=== PATIENT | male | born 1960 | race Caucasian/White ===

== ENCOUNTER 2024-10-09 09:44 | Observation (INO) | payer OTHER ==
[2024-10-09 10:33] LABS: Absolute Basophils 0.1 K/uL (0-0.5); Absolute Eosinophils 0.1 K/uL (0-0.5); Absolute Lymphocytes (CBC) 1.8 K/uL (0.7-4.9); Absolute Monocytes 0.7 K/uL (0.1-1.3); Absolute Neutrophil 4.7 K/uL (1.8-8.0); Basophils % 1.1 % (0-1.3); Hemoglobin 14.6 g/dL (13.6-17.9); Lymphocytes % 23.9 % (15.3-44.8); MCH 30.4 pg (27.0-35.0); MCHC 33.2 g/dL (32.0-36.0); MCV 91.5 fL (80-100); MPV 7.5 fL (7.6-11.3); Monocytes % 9.2 % (3.3-12.3); Neutrophils % 63.8 % (41.7-73.7); Nucleated Red Blood Cells % 0.1 % (0-0); Platelets 292 thou/uL (152-406); RBC Red Blood Cell Count 4.81 M/uL (4.33-5.43); Red Cell Distribution Width 15.1 % (12.1-15.2)
[2024-10-09 10:35] LABS: PT Prothrombin Time 11.2 SECONDS (10.0-13.0); Protime INR 0.98
[2024-10-09 10:46] LABS: Anion Gap 8.4 mEq/L (5.0-15.0); Potassium 4.4 mEq/L (3.5-5.1); Troponin High Sensitivity 10.6 pg/mL (<58.9)
--- NOTE | 2024-10-09 11:06 | RAD REPORT ---
EXAM: Chest Single View HISTORY: 63 years Male CHEST PAIN COMPARISON: None. FINDINGS: LUNGS/PLEURA: The lungs are clear. No pleural effusions or pneumothorax. No pulmonary edema. CARDIAC/MEDIASTINUM: Magnified by portable technique, but probably within normal limits. UPPER ABDOMEN: No significant abnormality. BONES: No acute abnormality. LINES/TUBES/OTHER: N/A IMPRESSION: No evidence of acute cardiopulmonary disease.
--- NOTE | 2024-10-09 11:09 | EDPHYS ---
Physician Documentation [facility] Name: Emanuel Tapia Age: 63 yrs Sex: Male : 1960 Arrival Date: 10/09/2024 Time: 09:44 Bed 7 Private MD: ED Physician Ashok Dominguez HPI: 10/09 11:04 This 63 yrs old Male presents to ER via Ambulatory with complaints of chest pain. rn 11:04 The patient or guardian reports chest pain that is located primarily in the substernal rn area. Onset: at an unknown time. Associated signs and symptoms: Pertinent negatives: diaphoresis, shortness of breath, syncope, vomiting. The chest pain is described as a heaviness. Modifying factors: The symptoms are alleviated by nothing. the symptoms are aggravated by nothing. Severity of pain: At its worst the pain was moderate in the emergency department the pain has improved. The patient has not experienced similar symptoms in the past. Patient reports chest pain, unclear exactly when it started but presented to [place] overnight to see Dr. Xavier in clinic this morning, Dr. Xavier sent patient here for admission and cath due to concerning story. Patient reports last heart cath was approximately 5 years ago. Patient does report recent acid reflux and heartburn problems. No cough or shortness of breath.. Historical: - Allergies: 09:58 No Known Allergies; ll1 - PMHx: 09:58 Hypertensive disorder; ll1 10:05 Hypercholesterolemia; ll1 - PSHx: 10:05 shoulder x 2, hip replacement; ll1 - Immunization history:: Adult Immunizations up to date. - Infectious Disease History:: Denies. - Social history:: Smoking status: Patient denies any tobacco usage or history of. - Family history:: not pertinent. - Hospitalizations: : No recent hospitalization is reported. ROS: 11:04 Constitutional: Negative for fever, chills, and weight loss, Cardiovascular: Negative rn for palpitations, and edema, Respiratory: Negative for shortness of breath, cough, wheezing, and pleuritic chest pain, Abdomen/GI: Negative for abdominal pain, nausea, vomiting, diarrhea, and constipation, MS/Extremity: Negative for injury and deformity, Skin: Negative for injury, rash, and discoloration, Neuro: Negative for headache, weakness, numbness, tingling, and seizure, Exam: 11:04 Constitutional: This is a well developed, well nourished patient who is awake, alert, rn and in no acute distress. Cardiovascular: Regular rate and rhythm. No pulse deficits. Respiratory: Speaking full sentences, unlabored. No increased work of breathing, no retractions or nasal flaring. Abdomen/GI: Soft, non-tender MS/ Extremity: Pulses equal, no cyanosis. Neurovascular intact. Full, normal range of motion. Equal circumference. Neuro: Awake and alert, GCS 15 Vital Signs: 09:59 Resp 18; Temp 98; Weight 117.93 kg; Height 5 ft. 11 in. ; Pain 6/10; ll1 10:37 BP 149 / 99; Pulse 68; Resp 21; Pulse Ox 98% on R/A; hb 11:45 BP 156 / 86; Pulse 66; Resp 16; Pulse Ox 99% on R/A; hb 13:00 BP 153 / 93; Pulse 63; Resp 21; Pulse Ox 97% on R/A; hb 09:59 Body Mass Index 36.26 (117.93 kg, 180.34 cm) ll1 09:59 Pain Scale: Adult ll1 MDM: 09:49 Medical Screening Exam initiated rn 11:04 Differential diagnosis: acute myocardial infarction, acute pericarditis, coronary rn artery disease costochondritis, pleurisy, pneumothorax, stable angina, unstable angina. HEART Score: History: Moderately Suspicious (1), ECG: Normal (0), Age: > 45 and < 65 years (1), Risk Factors: 1 or 2 risk factors (1), Troponin: < or = 1 x Normal Limit (0), Total Score = 3. Data reviewed: vital signs, nurses notes, lab test result(s), EKG, radiologic studies, plain films, and as a result, I will admit patient. Consideration of Admission/Observation Patient was admitted/placed on observation. Escalation of care including admission/observation considered. Counseling: I had a detailed discussion with the patient and/or guardian regarding the historical points, exam findings, and any diagnostic results supporting the discharge/admit diagnosis, lab results, radiology results, the need for further work-up and treatment in the hospital. ED course: Dr. Xavier called in, once patient n.p.o. and will likely take to cath later. Did not specify any other medications to be given at this time.. 10/09 10:06 Order name: Basic Metabolic Panel; Complete Time: 10:49 rn 10/09 10:06 Order name: CBC with Diff; Complete Time: 10:49 rn 10/09 10:06 Order name: NT PRO-BNP; Complete Time: 10:49 rn 10/09 10:06 Order name: PT-INR; Complete Time: 10:49 rn 10/09 10:06 Order name: Troponin HS; Complete Time: 10:49 rn 10/09 10:06 Order name: XRAY Chest (1 view); Complete Time: 11:08 rn 10/09 10:06 Order name: Cardiac monitoring; Complete Time: 10:18 rn 10/09 10:06 Order name: EKG - Nurse/Tech; Complete Time: 10:18 rn 10/09 10:06 Order name: IV Saline Lock; Complete Time: 10: rn 10/09 10:06 Order name: Labs collected and sent; Complete Time: 10: rn 10/09 10:06 Order name: O2 Per Protocol; Complete Time: 10: rn 10/09 10:06 Order name: O2 Sat Monitoring; Complete Time: 10:18 rn Administered Medications: No medications were administered Disposition Summary: 10/09/24 11:08 Hospitalization Ordered Notes: Hospitalization Status: Observation rn Provider: Magdiel Dominguez rn Condition: Stable rn Problem: an ongoing problem rn Symptoms: have improved rn Bed/Room Type: Standard rn Location: Telemetry/MedSurg (observation)(10/09/24 15:46) bd Room Assignment: [facility](10/09/24 15:46) bd Diagnosis - Chest pain, unspecified rn Forms: - Medication Reconciliation Form rn - SBAR form rn - Leadership Thank You Letter rn Signatures: Dispatcher [employer] EDMS Rere Nascimento bd Ashok Dominguez MD MD rn Baxter, Heather, RN RN hb Lewis, Lynsay RN RN ll1 Corrections: (The following items were deleted from the chart) 10:06 10:06 BASIC METABOLIC PANEL+C.LAB.BRZ ordered. EDMS EDMS 10:06 10:06 CBC+H.LAB.BRZ ordered. EDMS EDMS 10:06 10:06 PROBNP+C.LAB.BRZ ordered. EDMS EDMS 10:06 10:06 PROTIME (+INR)+COAG.LAB.BRZ ordered. EDMS EDMS 10:06 10:06 Troponin High Sensitivity+C.LAB.BRZ ordered. EDMS EDMS 10:06 10:06 Chest Single View+RAD.RAD.BRZ ordered. EDMS EDMS 10:06 09:58 PMHx: Coronary atherosclerosis; ll1 ll1 12:32 11:08 rn bd 12:48 12:32 405 bd bd 13:25 11:08 Telemetry/MedSurg (observation) rn hb 13:25 12:48 bd hb 15:46 13:25 [facility] ER HOLD hb bd 15:46 13:25 ERHOLD- hb bd
--- NOTE | 2024-10-09 11:09 | ER ---
Nurse's Notes [facility] Name: Emanuel Tapia Age: 63 yrs Sex: Male : 1960 Arrival Date: 10/09/2024 Time: 09:44 Bed 7 Private MD: Diagnosis: Chest pain, unspecified Presentation: 10/09 09:59 Chief complaint: Patient states: Sent in for further evaluation by Dr. Xavier. Chest ll1 pressure since 129. Coronavirus screen: Client denies travel out of the [place] in the last 14 days. At this time, the client does not indicate any symptoms associated with coronavirus-19. Ebola Screen: Patient denies travel to an Ebola-affected area in the 21 days before illness onset. Initial Sepsis Screen: Does the patient meet any 2 criteria? No. Patient's initial sepsis screen is negative. Does the patient have a suspected source of infection? No. Patient's initial sepsis screen is negative. Risk Assessment: Do you want to hurt yourself or someone else? Patient reports no desire to harm self or others. Onset of symptoms was October 09, 2024. 09:59 Method Of Arrival: Ambulatory ll1 09:59 Acuity: MAXIMINO 2 ll1 Triage Assessment: 10:00 General: Appears uncomfortable, Behavior is calm, cooperative, appropriate for age. ll1 Pain: Denies pain. Cardiovascular: Reports chest pain. Historical: - Allergies: 09:58 No Known Allergies; ll1 - PMHx: 09:58 Hypertensive disorder; ll1 10:05 Hypercholesterolemia; ll1 - PSHx: 10:05 shoulder x 2, hip replacement; ll1 - Immunization history:: Adult Immunizations up to date. - Infectious Disease History:: Denies. - Social history:: Smoking status: Patient denies any tobacco usage or history of. - Family history:: not pertinent. - Hospitalizations: : No recent hospitalization is reported. Screenin:19 [facility] ED Fall Risk Assessment (Adult) History of falling in the last 3 months, hb including since admission No falls in past 3 months (0 pts) Confusion or Disorientation No (0 pts) Intoxicated or Sedated No (0 pts) Impaired Gait No (0 pts) Mobility Assist Device Used No (0 pt) Altered Elimination No (0 pt) Score/Fall Risk Level 0 - 2 = Low Risk Oriented to surroundings, Maintained a safe environment, Educated pt \T\ family on fall prevention, incl call for assistance when getting out of bed. Abuse screen: Denies threats or abuse. Denies injuries from another. Nutritional screening: No deficits noted. Tuberculosis screening: No symptoms or risk factors identified. Assessment: 10:19 General: Appears in no apparent distress. Behavior is calm, cooperative. Pain: Pain hb currently is 6 out of 10 on a pain scale. Neuro: Level of Consciousness is awake, alert, obeys commands, Oriented to person, place, time, situation. Cardiovascular: Reports chest pain, Patient's skin is warm and dry. Respiratory: Respiratory effort is even, unlabored, Respiratory pattern is regular, symmetrical. GI: No signs and/or symptoms were reported involving the gastrointestinal system. : No signs and/or symptoms were reported regarding the genitourinary system. EENT: No signs and/or symptoms were reported regarding the EENT system. Derm: Skin is pink, warm \T\ dry. Musculoskeletal: No signs and/or symptoms reported regarding the musculoskeletal system. 12:30 Reassessment: Patient appears in no apparent distress at this time. Patient and/or hb family updated on plan of care and expected duration. Pain level reassessed. Patient is alert, oriented x 3, equal unlabored respirations, skin warm/dry/pink. Vital Signs: 09:59 Resp 18; Temp 98; Weight 117.93 kg; Height 5 ft. 11 in. ; Pain 6/10; ll1 10:37 BP 149 / 99; Pulse 68; Resp 21; Pulse Ox 98% on R/A; hb 11:45 BP 156 / 86; Pulse 66; Resp 16; Pulse Ox 99% on R/A; hb 13:00 BP 153 / 93; Pulse 63; Resp 21; Pulse Ox 97% on R/A; hb 09:59 Body Mass Index 36.26 (117.93 kg, 180.34 cm) ll1 09:59 Pain Scale: Adult ll1 ED Course: 09:48 Patient arrived in ED. im 09:48 Ashok Dominguez MD is Attending Physician. rn 09:58 Arm band placed on Patient placed in an exam room, on a stretcher. ll1 10:00 Triage completed. ll1 10:16 Inserted saline lock: 18 gauge in right antecubital area, using aseptic technique. hb Blood collected. Flushed with 10 mL NS. 10:16 Initial lab(s) drawn, by me, sent to lab. hb 10:18 Basic Metabolic Panel Sent. hb 10:18 CBC with Diff Sent. hb 10:18 NT PRO-BNP Sent. hb 10:18 PT-INR Sent. hb 10:18 Troponin HS Sent. hb 10:19 Patient has correct armband on for positive identification. Placed in gown. Bed in low hb position. Call light in reach. Provided Education on: tests, result times, use of call light . Client placed on continuous cardiac and pulse oximetry monitoring. NIBP monitoring applied. compliance monitor on. Pulse ox on. NIBP on. 10:36 Nora Hong, RN is Primary Nurse. hb 11:00 XRAY Chest (1 view) In Process Unspecified. EDMS 11:08 Mgadiel Dominguez MD is Hospitalizing Provider. rn 13:25 No provider procedures requiring assistance completed. Patient admitted, IV remains in hb place. Administered Medications: No medications were administered Medication: 10:20 VIS not applicable for this client. hb Outcome: 11:08 Decision to Hospitalize by Provider. rn 13:25 Admitted to ER Hold. Please see [facility] for further documentation. hb 13:25 Condition: stable 13:25 Instructed on the need for admit, Demonstrated understanding of instructions, 13:25 Patient left the ED. hb 17:03 Patient left the ED. hb Signatures: Dispatcher [employer] EDDC Ashok Dominguez MD MD rn Baxter, Heather, RN RN Dolores Bejarano RN RN ll1 Tracey Ferrer Corrections: (The following items were deleted from the chart) 10:06 09:58 PMHx: Coronary atherosclerosis; ll1 ll1
[2024-10-09] MEDS ORDERED: ONDANSETRON 4 MG/2 ML VIAL IV PRN (13:23)
[2024-10-09 13:28] VITALS: BMI 36.2
--- NOTE | 2024-10-09 14:13 | P.HP ---
Certification for Inpatient Patient admitted to: Observation With expected LOS: <2 Midnights Patient will require the following post-hospital care: None Practitioner: I am a practitioner with admitting privileges, knowledge of patient current condition, hospital course, and medical plan of care. Services: Services provided to patient in accordance with Admission requirements found in Title 42 Section 412.3 of the Code of Federal Regulations Patient History Date of Service: 10/09/24 Reason for admission: Chest pain History of Present Illness: 63-year-old male with history of hypertension, hyperlipidemia presents to the emergency department with chief complaint of chest pressure. He reports an episode of chest pressure associated with palpitations that occurred overnight, he felt as if his heart was beating very fast for around 30 minutes and during that time he developed some significant chest pressure. The chest pressure lasted for about an hour and a half after the palpitations resolved. He denies similar episodes in the past, had a heart catheterization about 5 years ago and he was told he had some mild CAD but nothing to intervene with, unsure of when his last stress or echo was. Patient was seen by cardiology in the clinic and they reviewed his EKG, sent him over for further evaluation in the hospital. Patient was evaluated in the hospital initial high sensitive troponin was normal at 10.6 EKG without STEMI criteria chest x-ray negative for acute findings. Patient will be admitted for further evaluation of chest pain. Allergies No Known Allergies Allergy (Unverified 10/09/24 11:56) - Past Medical/Surgical History -: HTN -: Hyperlipidemia -: Knee surgery, shoulder surgery, hip surgery Psychosocial/ Personal History: Here visiting from out of [facility] - Social History Smoking Status: Never smoker Alcohol use: Yes CD- Drugs: No Caffeine use: No Place of Residence: Home Review of Systems 10-point ROS is otherwise unremarkable Cardiovascular: Chest Pain, Palpitations Physical Examination - Physical Exam General: Alert, In no apparent distress, Oriented x3 HEENT: Atraumatic, PERRLA, EOMI Neck: Supple, 2+ carotid pulse no bruit, No LAD Respiratory: Clear to auscultation bilaterally, Normal air movement Cardiovascular: Regular rate/rhythm, Normal S1 S2 Gastrointestinal: Normal bowel sounds, No tenderness Musculoskeletal: No tenderness Integumentary: No rashes Neurological: Normal speech, Normal strength at 5/5 x4 extr, Normal tone - Studies Laboratory Data (last 24 hrs) 10/09/24 10/09/24 10/09/24 10:16 10:16 10:16 WBC 7.40 Hgb 14.6 Hct 44.0 Plt Count 292 PT 11.2 INR 0.98 Sodium 141 Potassium 4.4 BUN 19 H Creatinine 1.36 H Glucose 105 Assessment and Plan - Plan Assessment: Chest pain/palpitations rule out ACS Hypertension Hyperlipidemia Plan: Chest pain/palpitations rule out ACS Cardiology consulted Plan troponin and monitor on telemetry Anticipate coronary angiogram tomorrow morning, n.p.o. after midnight Hypertension Hyperlipidemia Continue home medications when verified DVT PPX: Lovenox Code status:full Discharge Plan: Home Plan to discharge in: 24 Hours - Advance Directives Does patient have a Living Will: No Does patient have a Durable POA for Healthcare: No - Code Status/Comfort Care Code Status Assessed: Yes (Full code) Critical Care: No Time Spent Managing Pts Care (In Minutes): 65
--- NOTE | 2024-10-09 16:30 | P.CNS ---
Date of Consult: 10/09/24 Chief Complaint: Chest pain History of Present Illness: Patient with PMH of HTN, HLD, presented with chest pain, palpitations that has been going on for almost a week, last for few minutes, no SOB, no GONG, no syncope. Allergies No Known Allergies Allergy (Unverified 10/09/24 11:56) Home medications list reviewed: Yes - Past Medical/Surgical History -: HTN -: Hyperlipidemia -: Knee surgery, shoulder surgery, hip surgery Psychosocial/ Personal History: Here visiting from out of [facility] - Social History Alcohol use: Yes CD- Drugs: No Caffeine use: No Place of Residence: Home Review of Systems 10-point ROS is otherwise unremarkable Physical Examination Temp Pulse Resp BP Pulse Ox 62 21 H 167/87 H 96 10/09/24 15:52 10/09/24 15:52 10/09/24 15:52 10/09/24 15:52 General: Alert, In no apparent distress HEENT: Atraumatic, PERRLA, Mucous membr. moist/pink, EOMI, Sclerae nonicteric Neck: Supple, 2+ carotid pulse no bruit, No LAD, Without JVD or thyroid abnormality Respiratory: Clear to auscultation bilaterally, Normal air movement Cardiovascular: Regular rate/rhythm, Normal S1 S2 Gastrointestinal: Normal bowel sounds, No tenderness Musculoskeletal: No tenderness Integumentary: No rashes Neurological: Normal gait, Normal speech, Normal tone, Normal affect Lymphatics: No axilla or inguinal lymphadenopathy Laboratory Data (last 24 hrs) 10/09/24 10/09/24 10/09/24 10:16 10:16 10:16 WBC 7.40 Hgb 14.6 Hct 44.0 Plt Count 292 PT 11.2 INR 0.98 Sodium 141 Potassium 4.4 BUN 19 H Creatinine 1.36 H Glucose 105 - Problems (1) Chest pain Current Visit: Yes Status: Acute Plan: NPO after midnight for coronary angiogram in am ASA 81 mg daily Lipitor 40 mg daily monitor on tele
[2024-10-09] MEDS ORDERED: HYDRALAZINE HCL 20 MG/ML VIAL IV PRN (17:40)
[2024-10-09] MEDS: ATORVASTATIN 40 MG TAB PO SCH (20:21)
[2024-10-10] MEDS: ASPIRIN EC 81 MG TAB PO ONE (05:43)
[2024-10-10 05:47] LABS: Absolute Basophils 0.1 K/uL (0-0.5); Absolute Eosinophils 0.2 K/uL (0-0.5); Absolute Lymphocytes (CBC) 1.8 K/uL (0.7-4.9); Absolute Monocytes 0.6 K/uL (0.1-1.3); Absolute Neutrophil 4.5 K/uL (1.8-8.0); Basophils % 1.2 % (0-1.3); Hematocrit 39.9 % (39.6-49.0); Hemoglobin 13.5 g/dL (13.6-17.9); MCH 31.1 pg (27.0-35.0); MCHC 33.9 g/dL (32.0-36.0); MCV 91.9 fL (80-100); MPV 7.3 fL (7.6-11.3); Monocytes % 8.3 % (3.3-12.3); Neutrophils % 62.5 % (41.7-73.7); Platelets 267 thou/uL (152-406); RBC Red Blood Cell Count 4.34 M/uL (4.33-5.43)
[2024-10-10] MEDS: NA CHLORIDE 0.9% 1,000 ML IV SCH (05:50)
[2024-10-10] MEDS: ASPIRIN EC 81 MG TAB PO SCH (05:50)
[2024-10-10 06:10] LABS: Anion Gap 8.8 mEq/L (5.0-15.0); Potassium 3.8 mEq/L (3.5-5.1); Troponin High Sensitivity 13.5 pg/mL (<58.9)
[2024-10-10 06:12] LABS: Thyroid Stimulating Hormone 4.2 uIU/mL (0.358-3.740)
[2024-10-10] MEDS ORDERED: NITROGLYCERIN/D5W 50 MG/250 ML BTL IV ONE (06:49)
[2024-10-10] MEDS ORDERED: HEPARIN 10,000 UNIT/10 ML VIAL IV ONE (06:49)
[2024-10-10] MEDS ORDERED: HEPA 1000U/500MLS 2,000 UNIT/1,000 ML BAG IV ONE (06:49)
[2024-10-10] MEDS ORDERED: ASPIRIN 325 MG TAB ONE (06:50)
[2024-10-10] MEDS ORDERED: LIDOCAINE 1% 20 ML MDV ONE (06:50)
[2024-10-10] MEDS ORDERED: CLOPIDOGREL 75 MG TABLET ONE (06:50)
[2024-10-10] MEDS ORDERED: MIDAZOLAM HCL 2 MG/2 ML INJ ONE (06:50)
[2024-10-10] MEDS ORDERED: TICAGRELOR 90 MG TABLET PO ONE (06:50)
[2024-10-10] MEDS ORDERED: HEPARIN 5000 UNIT/ML 1 ML VIAL ONE (06:50)
[2024-10-10] MEDS ORDERED: FLUMAZENIL 0.1 MG/ML (5 mL VIAL) IV ONE (06:51)
[2024-10-10] MEDS ORDERED: NALOXONE 0.4 MG/ML VIAL ONE (06:51)
[2024-10-10] MEDS ORDERED: FENTANYL CITR 100 MCG/2 ML ONE (06:51)
[2024-10-10] MEDS ORDERED: ATROPINE SULF 1 MG/10 ML SYR IV ONE (06:55)
[2024-10-10] MEDS ORDERED: NA CHLORIDE 0.9% 500 ML ONE (07:04)
[2024-10-10] MEDS: ENOXAPARIN 40 MG/0.4 ML SQ SCH (09:00)
[2024-10-10 09:59] VITALS: O2SAT 96
--- NOTE | 2024-10-10 11:46 | P.PN ---
Subjective Date of Service: 10/10/24 Chief Complaint: Chest pain Subjective: No new changes, No C/O voiced, Tolerating diet, Ambulating, Improving Review of Systems 10-point ROS is otherwise unremarkable Physical Examination - Vital Signs Temperature: 97.6 F Blood Pressure: 154/92 Pulse: 58 Respirations: 16 Pulse Ox (%): 97 - Physical Exam General: Alert, In no apparent distress HEENT: Atraumatic, PERRLA, EOMI Neck: Supple, JVD not distended Respiratory: Clear to auscultation bilaterally, Normal air movement Cardiovascular: Regular rate/rhythm, Normal S1 S2 Gastrointestinal: Normal bowel sounds, No tenderness Musculoskeletal: No tenderness Integumentary: No rashes Neurological: Normal speech, Normal tone, Normal affect Lymphatics: No axilla or inguinal lymphadenopathy - Studies Medications List Reviewed: Yes Assessment And Plan - Current Problems (Diagnosis) (1) Chest pain Current Visit: Yes Status: Acute Plan: patient had a coronary angiogram this morning that shows normal coronaries. ASA 81 mg daily Lipitor 40 mg daily
[2024-10-10 11:50] VITALS: BP 163/90; TEMP 98.2
--- NOTE | 2024-10-10 12:19 | P.DS ---
Admission Date: 10/09/24 Discharge Date: 10/10/24 Disposition: ROUTINE DISCHARGE Discharge Condition: GOOD Reason for Admission: Chest pain Brief History of Present Illness: 63-year-old male with history of hypertension, hyperlipidemia presents to the emergency department with chief complaint of chest pressure. He reports an episode of chest pressure associated with palpitations that occurred overnight, he felt as if his heart was beating very fast for around 30 minutes and during that time he developed some significant chest pressure. The chest pressure lasted for about an hour and a half after the palpitations resolved. He denies similar episodes in the past, had a heart catheterization about 5 years ago and he was told he had some mild CAD but nothing to intervene with, unsure of when his last stress or echo was. Patient was seen by cardiology in the clinic and they reviewed his EKG, sent him over for further evaluation in the hospital. Patient was evaluated in the hospital initial high sensitive troponin was normal at 10.6 EKG without STEMI criteria chest x-ray negative for acute findings. Patient will be admitted for further evaluation of chest pain. Hospital Course: Assessment: Chest pain/palpitations rule out ACS Hypertension Hyperlipidemia Patient was admitted to the hospital for chest pain, troponins were negative x 3. He was seen by cardiology who recommended coronary angiogram. Coronary angiogram was performed on 10/10/2024 and showed normal coronaries. Patient stable for discharge outpatient follow-up with cardiology in 1 to 2 weeks, may consider Holter monitor or event monitor given the palpitation surrounding this event. Continue home medications as previously prescribed. Vital Signs/Physical Exam: Temp Pulse Resp BP Pulse Ox 98.2 F 64 16 163/90 H 92 10/10/24 11:49 10/10/24 11:49 10/10/24 11:49 10/10/24 11:49 10/10/24 11:49 General: Alert, In no apparent distress, Oriented x3 HEENT: Atraumatic, PERRLA Neck: Supple, JVD not distended Respiratory: Clear to auscultation bilaterally, Normal air movement Cardiovascular: Regular rate/rhythm, Normal S1 S2 Gastrointestinal: Normal bowel sounds, No tenderness Musculoskeletal: No tenderness Integumentary: No rashes Neurological: Normal speech, Normal affect Laboratory Data at Discharge: WBC 7.20 thou/uL (4.3-10.9) 10/10/24 05:15 Hgb 13.5 g/dL (13.6-17.9) L 10/10/24 05:15 Hct 39.9 % (39.6-49.0) 10/10/24 05:15 Plt Count 267 thou/uL (152-406) 10/10/24 05:15 PT 11.2 SECONDS (10.0-13.0) 10/09/24 10:16 INR 0.98 10/09/24 10:16 Sodium 141 mEq/L (136-145) 10/10/24 05:15 Potassium 3.8 mEq/L (3.5-5.1) D 10/10/24 05:15 BUN 17 mg/dL (7-18) 10/10/24 05:15 Creatinine 1.18 mg/dL (0.70-1.30) 10/10/24 05:15 Glucose 109 mg/dL (74-106) H 10/10/24 05:15 Physician Discharge Instructions: Patient was admitted to the hospital for chest pain, troponins were negative x 3. He was seen by cardiology who recommended coronary angiogram. Coronary angiogram was performed on 10/10/2024 and showed normal coronaries. Patient stable for discharge outpatient follow-up with cardiology in 1 to 2 weeks, may consider Holter monitor or event monitor given the palpitation surrounding this event. Continue home medications as previously prescribed. Diet: AHA Activity: Ad harley Followup: Manan Negron MD [ACTIVE - CAN ADMIT] - 1-2 Weeks OOT,OOT [Primary Care Provider] - Time spent managing pt's care (in minutes): 45
--- NOTE | 2024-10-11 16:54 | EKG ---
Test Date: 2024-10-09 Test Time: 10:15:58 Station Engineer: HB MEASUREMENT RESULTS: Intervals: Rate: 62 WI: 208 QRSD: 78 QT: 404 QTc: 410 [place]: P: 43 WI: 208 QRS: -16 T: 43 INTERPRETIVE STATEMENTS: Normal sinus rhythm Normal ECG No previous ECG available for comparison Electronically Signed On 10-11-24 16:46:59 FERRYBOAT OPERATOR HELPER by Manan Negron
--- NOTE | 2024-10-11 20:37 | OP ---
Date of Procedure: 10/10/2024 Surgeon: Manan Negron Procedure Performed: Selective coronary angiogram with left heart catheterization. Indication For Procedure: Unstable angina. Complications: None. Estimated Blood Loss: Less than 50 cc. Access: Right radial, closed by TR band. Sedation Time: 20 minutes with 1 of Versed and 50 of fentanyl. Description Of Procedure: After risks, benefits, and alternatives were explained to the patient, the patient agreed to proceed with procedure and signed informed consent. The patient was brought back to the laboratory sample carrier, prepped and draped in sterile fashion. Time-out was performed. Sedation was admini stered. Next, right radial access was obtained using an ultrasound-guided micropuncture technique. Post 4 catheter was advanced over the J-wire to the LV cavity. LVEDP was obtained. Pullback did no t show any gradient. Same catheter was used for selective angiogram of the left and right coronary s ystems. At the end of procedure, catheter was removed over a J-wire. Sheath was removed. TR band w as applied. Hemostasis achieved. The patient was moved back to recovery in stable condition. Findings: 1. Left main: Normal. 2. LAD: Proximal to mid, mild luminal irregularities. Then, distal diffuse atherosclerosis. Small artery. 3. Left circumflex: Mild luminal irregularities. 4. RCA: Large, dominant with mild luminal irregularities. 5. LVEDP: 26 mmHg. Assessment And Plan: 1. Normal coronaries with mildly elevated filling pressure. 2. Continue medical management. SANG/SHERRI Voice ID: [id number] Report ID: [id number]
== END 2024-10-10 13:27 | disposition home or self-care (01) ==
LOC: ER 09:44 → ERHOLD 12:21 → 4TH 12:45 → ERHOLD 12:54 → 2ND 16:07
PROVIDERS: ADMIT Hospitalist; ATTEND Hospitalist
PROC: 4A023N7 Measurement of Cardiac Sampling and Pressure, Left Heart, Percutaneous Approach (ICD-10-PCS; principal; 2024-10-10)
PROC: B2111ZZ Fluoroscopy of Multiple Coronary Arteries using Low Osmolar Contrast (ICD-10-PCS; 2024-10-10)
DX: R07.9 Chest pain, unspecified (principal); R00.2 Palpitations; I10 Essential (primary) hypertension; E78.5 Hyperlipidemia, unspecified
CPT/HCPCS: 93005; 85025 ×2; 80048 ×2; 36415; 85610; 84443; 84484 ×3; 84439; 83880; 71045; 93458; 76937; 99285; C1893; Q9966; J1644; J0360; J2003; J2250; J3010; J7040; J7030 ×2; G0378 ×4; 99152; 99153; J0461; J2310